=== PATIENT | female | born 1965 | race Two or more races ===

== ENCOUNTER 2024-10-02 20:56 | Emergency (ER) | payer MEDICARE, OTHER ==
[~2024-10-02] VITALS: Ht 170.2 cm; Wt 93.3 kg
[2024-10-02] MEDS ORDERED: NYST150P2 TOP (22:47)
--- NOTE | 2024-10-02 22:47 | ED.PDOC ---
History of Present Illness(SKN HPI Comments 59 year old female presents to ER with complaints of rash x 2 days. Patient is present with environment coordinator, reporting that she has been experiencing an red itchy rash to antecubital fossa of both arms, under bilateral breasts and under belly folds x 2 days. Denies use of medications for current symptoms and denies any pain. Denies fever, skin drainage, body aches or any further symptoms/complaints Chief Complaint: Rash Time Seen by MD: 21:04 Primary Care Provider: UNKNOWN History of Present Illness: Nurses Notes, Medications, Allergies Allergies: Coded Allergies: Codeine (Verified Allergy, Unknown, 10/02/24) Penicillins (Verified Allergy, Unknown, 10/02/24) Home Meds Active Scripts Nystatin (Nystatin) 1 Pow Pow, 1 POW TOP BID PRN, #1 POW 1 Refill Prov:MIKAELA MILLER 10/02/24 Information Source: Patient Mode of Arrival: Ambulatory Past Medical History PAST MEDICAL HISTORY: High Lipids, HTN Past Medical History (Other): Parkinsons Surgical History: Cholecystectomy, Tubal Ligation BOILER HELPER History: No Pertinent BOILER HELPER History Family History Family History: Unknown Social History Smoker: Non-Smoker Alcohol: Denies ETOH Use Drugs: Denies Drug Use Lives In: Home Constitutional: denies: chills, diaphoresis, fatigue, fever, malaise, sweats, weakness, others EENTM: denies: blurred vision, double vision, ear bleeding, ear discharge, ear drainage, ear pain, ear ringing, eye pain, eye redness, hearing loss, mouth pain, mouth swelling, nasal discharge, nose bleeding, nose congestion, nose pain, photophobia, tearing, throat pain, throat swelling, voice changes, others Respiratory: denies: cough, hemoptysis, orthopnea, SOB at rest, shortness of breath, SOB with excertion, stridor, wheezing, others Cardiovascular: denies: chest pain, dizzy spells, diaphoresis, Dyspnea on exertion, edema, irregular heart beat, left arm pain, lightheadedness, palpitations, PND, syncope, others Gastrointestinal: denies: abdomen distended, abdominal pain, blood streaked bowels, constipated, diarrhea, dysphagia, difficulty swallowing, hematemesis, melena, nausea, poor appetite, poor fluid intake, rectal bleeding, rectal pain, vomiting, others Genitourinary: denies: abnormal vagina bleeding, burning, dyspareunia, dysuria, flank pain, frequency, hematuria, incontinence, pain, , vagina discharge, urgency, others Neurological: denies: dizziness, fainting, headache, left sided numbness, left sided weakness, numbness, paresthesia, pre-existing deficit, right sided numbness, right sided weakness, seizure, speech problems, tingling, tremors, weakness, others Musculoskeletal: denies: back pain, gout, joint pain, joint swelling, muscle pain, muscle stiffness, neck pain, others Integumetry: reports: others (As stated in HPI) Allergic/Immunocompromised: reports: others (As stated in HPI) Hematologic/Lymphatic: denies: anemia, blood clots, easy bleeding, easy bruising, swollen glands, others Endocrine: denies: excessive hunger, excessive sweating, excessive thirst, excessive urination, flushing, intolerance to cold, intolerance to heat, unexplained weight gain, unexplained weight loss, others Psychiatric: denies: anxiety, bipolar disorder, depression, hopeless, panic disorder, schizophrenia, sleepless, suicidal, others Physical Exam General Appearance: No Apparent Distress HEENT: PERRL/EOMI Neck: Full Range of Motion, Non-Tender, Normal Respiratory: Chest Non-Tender, Lungs Clear, No Accessory Muscle Use, No Respir atory Distress, Normal Breath Sounds Cardiovascular: No Murmur, No Gallop, Regular Rate/Rhythm Breast Exam: Deferred Gastrointestinal: Non Tender, No Pulsatile Mass, Soft Genitalia: Deferred Pelvic: Deferred Rectal: Deferred Extremities: Normal capillary refill, Normal range of motion Neurologic: Alert, No Motor Deficits, Normal Affect, Normal Mood, No Sensory Deficits Cerebellar Function: Normal Reflexes: Normal Skin: Dry, Warm, Other (Mild erythema noted to region of antecubital fossa of both arms and under belly folds that patient is noted to be itching. No open wounds/skin drainage noted) Peripheral Pulses: 2+ Radial (R), 2+ Radial (L), 2+ Brachial (R), 2+ Brachial (L) Lymphatic: No Adenopathy Was a procedure done? Was a procedure done?: No Sedation Sedation?: No Differential Diagnosis (INTG) Differential Diagnosis: Abrasion Differential Diagnosis: Abscess, Contact Dermatitis Differential Diagnosis: Cellulitis X-Ray, Labs, Meds, VS Vital Signs Date Time Temp Pulse Resp B/P (MAP) Pulse Ox O2 Delivery O2 Flow Rate FiO2 10/02/24 21:17 98.2 90 20 (60) 93 98.2 Advised to f/u with PCP in 1-2 days Patient and patients caregiver verbalized understanding and agreeable with current plan of care Advised to return to ER immediately if symptoms worsen Time of 1ST Reevaluation: 22:20 Reevaluation 1ST: N/A Patient Education/Counseling: Diagnosis, Treatment, Prognosis, Need For Follow Up Family Education/Counseling: Diagnosis, Treatment, Prognosis, Need For Follow Up SEPSIS Sepsis Screen Date sepsis recognized/suspect: Oct 02, 2024 Time Sepsis recognized/suspect: 2109 Recent Procedure: No On Antibiotic Therapy: No Respiratory Rate >20: No Heart Rate >90: No Temp<36 C (96.8 F) or >38.3 C: No SBP <90 or MAP <65 mmHG: No New Acute Mental Status Change: No Is the patient on CPAP, BIPAP,: No Vital Signs Date Time Temp Pulse Resp B/P (MAP) Pulse Ox O2 Delivery O2 Flow Rate FiO2 10/02/24 21:17 98.2 90 20 (60) 93 98.2 Departure 1 Departure Time of Disposition: 22:42 Impression: Primary Impression: Candidal dermatitis Disposition: HOME / SELF CARE / HOMELESS Condition: Stable e-Prescriptions Nystatin (Nystatin) 1 Pow Pow 1 POW TOP BID PRN, #1 POW 1 Refill Prov: MIKAELA MILLER 10/02/24 Discharged With: Mattress Filler Critical Care Note Critical Care Time?: No Stability Stability form required: No Heart Score Heart Score: Heart Score Response (Comments) Value History N/A 0 EKG N/A 0 Age N/A 0 Risk Factors N/A 0 Troponin N/A 0 Total 0 MIKAELA MILLER Oct 02, 2024 22:47
[2024-10-02 23:05] VITALS: BP 112/90; PULSE 88; RESP 18; TEMP 98.4; O2SAT 94
== END 2024-10-02 23:25 | disposition home or self-care (01) ==
LOC: ER 20:56
DX: B37.2 Candidiasis of skin and nail (principal); I10 Essential (primary) hypertension; E78.5 Hyperlipidemia, unspecified; G20.A1 Parkinson's disease without dyskinesia, without mention of fluctuations; Z98.51 Tubal ligation status; Z90.49 Acquired absence of other specified parts of digestive tract; Z88.5 Allergy status to narcotic agent; Z88.0 Allergy status to penicillin; Z79.899 Other long term (current) drug therapy

== ENCOUNTER 2024-11-09 11:42 | Inpatient (IN) | payer MEDICARE, OTHER ==
[~2024-11-09] VITALS: Ht 167.6 cm; Wt 96.6 kg
[~2024-11-09 11:42] MED LIST: NYST150P2 TOP
[2024-11-09 11:54] VITALS: PULSE 82; RESP 13; O2SAT 96
--- NOTE | 2024-11-09 12:11 | ED.PDOC ---
History of Present Illness HPI Comments This is a 59-year-old female with past medical history of hypertension, Parkinson disease, depression presented to the ED via EMS for an evaluation of status post mechanical fall. According to EMS the patient had a mechanical fall 30 minutes ago parking lot of [id number] while she was attending the [facility]. The patient is A&O x3 and is complaining of pain in the left knee and pain and burning sensation in the urine. She denies headache, blurred vision, lightheadedness, shoulder , chest or hip pain. She fall on her right side and there are bruises in the check, right wrist, and knee. Chief Complaint: Fall Injury Time Seen by MD: 11:45 Primary Care Provider: UNKNOWN Allergies: Coded Allergies: Codeine (Verified Allergy, Unknown, 10/02/24) Penicillins (Verified Allergy, Unknown, 10/02/24) Home Meds Active Scripts Nystatin (Nystatin) 1 Pow Pow, 1 POW TOP BID PRN, #1 POW 1 Refill Prov:MIKAELA MILLER 10/02/24 Information Source: Patient, Emergency Med Personnel Mode of Arrival: EMS Severity: Moderate Timing: Hours Duration: Since onset Prehospital treatment: None Past Medical History PAST MEDICAL HISTORY: Alzheimer, Depression, High Lipids, HTN Surgical History: Cholecystectomy, Tubal Ligation PLANT 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 Pertinent PLANT TECHNICIAN History Family History Family History: Unknown Social History Smoker: Non-Smoker Alcohol: Denies ETOH Use Drugs: Denies Drug Use Lives In: Home Constitutional: denies: chills, diaphoresis, fatigue, fever, malaise, sweats, weakness, others EENTM: denies: blurred vision, double vision, ear bleeding, ear discharge, ear drainage, ear pain, ear ringing, eye pain, eye redness, hearing loss, mouth pain, mouth swelling, nasal discharge, nose bleeding, nose congestion, nose pain, photophobia, tearing, throat pain, throat swelling, voice changes, others Respiratory: denies: cough, hemoptysis, orthopnea, SOB at rest, shortness of breath, SOB with excertion, stridor, wheezing, others Cardiovascular: denies: chest pain, dizzy spells, diaphoresis, Dyspnea on exertion, edema, irregular heart beat, left arm pain, lightheadedness, palpitations, PND, syncope, others Gastrointestinal: denies: abdomen distended, abdominal pain, blood streaked bowels, constipated, diarrhea, dysphagia, difficulty swallowing, hematemesis, melena, nausea, poor appetite, poor fluid intake, rectal bleeding, rectal pain, vomiting, others Genitourinary: denies: abnormal vagina bleeding, burning, dyspareunia, dysuria, flank pain, frequency, hematuria, incontinence, pain, , vagina discharg e, urgency, others Neurological: denies: dizziness, fainting, headache, left sided numbness, left sided weakness, numbness, paresthesia, pre-existing deficit, right sided numbness, right sided weakness, seizure, speech problems, tingling, tremors, weakness, others Musculoskeletal: reports: back pain, others (Pain in the left knee); denies: gout, joint pain, joint swelling, muscle pain, muscle stiffness, neck pain Integumetry: reports: bruises; denies: change in color, change in hair/nails, dryness, laceration, lesions, lumps, rash, wounds, others Allergic/Immunocompromised: denies: Difficulty Healing, Frequent Infections, Hives, Itching, others Hematologic/Lymphatic: denies: anemia, blood clots, easy bleeding, easy bruising, swollen glands, others Endocrine: denies: excessive hunger, excessive sweating, excessive thirst, excessive urination, flushing, intolerance to cold, intolerance to heat, unexplained weight gain, unexplained weight loss, others Psychiatric: reports: depression; denies: anxiety, bipolar disorder, hopeless, panic disorder, schizophrenia, sleepless, suicidal, others Physical Exam General Appearance: Normal HEENT: Normal ENT Inspection, Pharynx Normal, TMs Normal Neck: Full Range of Motion, Non-Tender, Normal, Normal Inspection Respiratory: Chest Non-Tender, Lungs Clear, No Accessory Muscle Use, No Respiratory Distress, Normal Breath Sounds Cardiovascular: No Edema, No JVD, No Murmur, No Gallop, Normal Peripheral Pulses, Regular Rate/Rhythm Breast Exam: Deferred Gastrointestinal: No Organomegaly, Non Tender, No Pulsatile Mass, Normal Bowel Sounds, Soft Genitalia: Deferred Pelvic: Deferred Rectal: Deferred Extremities: No calf tenderness, Normal capillary refill, Normal range of motion, No pedal edema Neurologic: internal communications intern II-XII nml as Tested, No Motor Deficits, No Sensory Deficits, Other (Use walker) Cerebellar Function: Tremor Reflexes: Normal Skin: Bruises Peripheral Pulses: 2+ carotid (R), 2+ carotid (L), 2+ femoral (R), 2+ femoral (L), 2+ dorsalis pedis (R), 2+ dorsalis pedis (L), 2+ Radial (R), 2+ Radial (L), 2+ Brachial (R), 2+ Brachial (L) Lymphatic: No Adenopathy Was a procedure done? Was a procedure done?: No Differential Dx Considerations may include: Status post mechanical fall, fractures, bruises, musculoskeletal pain, tremor, parkinsonism, generalized weakness X-Ray, Labs, Meds, VS Vital Signs Date Time Temp Pulse Resp B/P (MAP) Pulse Ox O2 Delivery O2 Flow Rate FiO2 11/09/24 11:54 82 13 96 Nasal Cannula* 4 36 11/09/24 11:54 98.9 82 13 110/85 (93) 93 98.9 11/09/24 11:44 98.9 88 20 111/74 95 98.9 Lab Test 11/09/24 13:10 Range/Units White Blood Count 6.3 4.4-10.8 10^3/uL Red Blood Count 4.28 4.0-5.20 10^6/uL Hemoglobin 14.1 12.2-16.2 g/dL Hematocrit 41.2 36.0-46.0 % Mean Corpuscular Volume 96.3 80.0-100.0 fL Mean Corpuscular Hemoglobin 32.9 H 28.0-32.0 pg Mean Corpuscular Hemoglobin Concent 34.1 32.0-36.0 g/dL Red Cell Distribution Width 15.7 H 11.8-14.3 % Platelet Count 220 140-450 10^3/uL Mean Platelet Volume 9.2 6.9-10.8 fL Neutrophils (%) (Auto) 61.2 37.0-80.0 % Lymphocytes (%) (Auto) 25.4 10.0-50.0 % Monocytes (%) (Auto) 11.1 0.0-12.0 % Eosinophils (%) (Auto) 1.9 0.0-7.0 % Basophils (%) (Auto) 0.4 0.0-2.0 % Neutrophils # (Auto) 3.8 1.6-8.6 10 ^3/uL Lymphocytes # (Auto) 1.6 0.4-5.4 10 ^3/uL Monocytes # (Auto) 0.7 0-1.3 10 ^3/uL Eosinophils # (Auto) 0.1 0-0.8 10 ^3/uL Basophils # (Auto) 0 0-0.2 10 ^3/uL Nucleated Red Blood Cells 0.0 % Sodium Level 140 136-145 mmol/L Potassium Level 3.9 3.5-5.1 mmol/L Chloride Level 103 98-107 mmol/L Carbon Dioxide Level 33 H 20-31 mmol/L Anion Gap 4 L 5-15 Blood Urea Nitrogen 13 9-23 mg/dL Creatinine 0.83 0.550-1.02 mg/dL Glomerular Filtration Rate Calc 80 >90 mL/min BUN/Creatinine Ratio 15.7 10.0-20.0 Serum Glucose 93 74-106 mg/dL Calcium Level 8.3 L 8.7-10.4 mg/dL Current Medications Medications (Trade) Dose Ordered Sig/Radha Route Start Time Stop Time Status Last Admin Ketorolac Tromethamine (Toradol Injection) 30 mg ONCE ONCE IV 11/09/24 14:45 11/09/24 15:33 DC 11/09/24 17:13 X-Ray, Labs, Meds, VS Comment EXAM: CT CERVICAL WITHOUT CONTRAST INDICATION: Status post mechanical fall EXAM DATE: 11/09/2024 12:50 PM COMPARISON: None TECHNIQUE: Multiple axial CT images of the cervical spine were obtained using bone algorithm. Axial and coronal reformatting was done. Bone and soft tissue windows were reviewed. Radiation Dose Information: CT Dose: CTDI volume is 20.95 mGy. Dose-length product is 462.51 mGy*cm FINDINGS: The cervical alignment is intact. No acute cervical spine fracture is identified. The vertebral body heights are intact. No suspicious osseous lesions are identified. No significant degenerative changes are identified. There is no prevertebral soft tissue swelling. IMPRESSION: No evidence of acute cervical spine fracture or traumatic malalignment. EXAM: CT HEAD WITHOUT CONTRAST INDICATION: History of fall TECHNIQUE: CT of the head without intravenous contrast. Radiation Dose Information: CT Dose: CTDI volume is 54.01 mGy. Dose-length product is 1077.86 mGy*cm The dose indicators for CT are the volume Computed Tomography (CT) Dose Index (CTDIvol) and the Dose Length Product (DLP), and are measured in units of mGy and mGy-cm, respectively. These indicators are not patient dose, but values generated from the CT scanner acquisition factors. The report includes radiation exposure data for exposures received during this examination. COMPARISON: None FINDINGS: There is no evidence of acute intracranial hemorrhage, extra-axial collection, mass effect, midline shift, herniation or hydrocephalus. The ventricles, sulci and cisterns are age appropriate. The dolan-white differentiation is intact. Patchy periventricular and subcortical white matter hypoattenuation is nonspecific but may be related to small vessel ischemic disease. The visualized paranasal sinuses and mastoid air cells are clear. The surrounding soft tissues and osseous structures are unremarkable. IMPRESSION: No acute intracranial abnormality. CLINICAL INDICATION: Status post mechanical fall TECHNIQUE: 2 radiographic views of the right knee were obtained. Comparison: None FINDINGS/IMPRESSION: There is no evidence of acute fracture or dislocation. The visualized joint space is well maintained. The alignment is anatomical. There is no radiopaque foreign body. EXAM: XY CHEST XRAY 1 VIEW Indication: Status post mechanical fall Technique: Single frontal view of the chest was obtained Comparison: None FINDINGS: Lines and Tubes: None Lungs: Low lung volumes with diffuse interstitial opacities. Pleura: No effusion. No pneumothorax. Cardiomediastinal contours: Unremarkable Bones: No acute osseous abnormality. IMPRESSION: Low lung volumes with diffuse interstitial opacities. Images Reviewed?: Images reviewed and evaluated by me Time of 1ST Reevaluation: 15:00 Reevaluation 1ST: Improved Patient Education/Counseling: Diagnosis, Treatment Family Education/Counseling: Other Comments This is a 60 yr old female brought into ED via EMS after a mechanical fall in the parking lot of [facility] during community outreach event Initial physical exam demonstrated mild erythema in the right cheek and right knee, no sign of swelling or tenderness is present in the extremities Trauma workup CT head, CT cervical spine, chest x-ray, plain x-ray KUB and knee x-ray were negative. The patient is ambulatory in walker and A&OX3 in her baseline. The patient is complaining of chest pain and knee pain after fall and not able to ambulate with a walker The patient will need inpatient admission for further evaluation and management of mechanical fall and generalized weakness SEPSIS Sepsis Screen Physician Orders Head Without Contrast (11/09/24 11:59) Chest Xray 1 View (11/09/24 11:59) Kub Abdomen Single View (11/09/24 11:59) Urinalysis (11/09/24 11:59) Cervical Without Contrast (11/09/24 11:59) R Knee 2v Xray (11/09/24 11:59) Vital Signs Date Time Temp Pulse Resp B/P (MAP) Pulse Ox O2 Delivery O2 Flow Rate FiO2 11/09/24 11:54 82 13 96 Nasal Cannula* 4 36 11/09/24 11:54 98.9 82 13 110/85 (93) 93 98.9 11/09/24 11:44 98.9 88 20 111/74 95 98.9 Laboratory Tests Test 11/09/24 13:10 White Blood Count 6.3 10^3/uL (4.4-10.8) Medications Medications Dose Ordered Sig/Radha Route Start Time Stop Time Status Last Admin Dose Admin Ketorolac Tromethamine 30 mg ONCE ONCE IV 11/09/24 14:45 11/09/24 15:33 DC 11/09/24 17:13 Departure 1 Departure Time of Disposition: 15:44 Impression: Primary Impression: Status post fall Additional Impression: Superficial bruising of lower leg Disposition: ADMITTED INPATIENT Admit to: Med Surg Condition: Guarded Critical Care Note Critical Care Time?: No Stability Stability form required: KALE Phan RESIDENT Nov 09, 2024 12:11
--- NOTE | 2024-11-09 13:31 | DVH ---
CLINICAL INDICATION: Status post mechanical fall TECHNIQUE: 2 radiographic views of the right knee were obtained. Comparison: None FINDINGS/IMPRESSION: There is no evidence of acute fracture or dislocation. The visualized joint space is well maintained. The alignment is anatomical. There is no radiopaque foreign body.
--- NOTE | 2024-11-09 13:33 | DVH ---
Date: 11/09/2024 01:00 PM Examination: XY KUB ABDOMEN SINGLE VIEW History: Status post mechanical fall Comparison: None TECHNIQUE: Frontal views of the abdomen was obtained. FINDINGS: Moderate stool burden. The lung bases are collimated from field of view. No acute osseous abnormality identified. IMPRESSION: Nonobstructive bowel gas pattern.
--- NOTE | 2024-11-09 13:34 | DVH ---
EXAM: XY CHEST XRAY 1 VIEW Indication: Status post mechanical fall Technique: Single frontal view of the chest was obtained Comparison: None FINDINGS: Lines and Tubes: None Lungs: Low lung volumes with diffuse interstitial opacities. Pleura: No effusion. No pneumothorax. Cardiomediastinal contours: Unremarkable Bones: No acute osseous abnormality. IMPRESSION: Low lung volumes with diffuse interstitial opacities.
[2024-11-09 13:35] LABS: Hematocrit 41.2 % (36.0-46.0); Hemoglobin 14.1 g/dL (12.2-16.2); Mean Corpuscular Hemoglobin 32.9 pg (28.0-32.0); Mean Corpuscular Volume 96.3 fL (80.0-100.0); Nucleated Red Blood Cells % 0.0 %
--- NOTE | 2024-11-09 13:39 | DVH ---
EXAM: CT CERVICAL WITHOUT CONTRAST INDICATION: Status post mechanical fall EXAM DATE: 11/09/2024 12:50 PM COMPARISON: None TECHNIQUE: Multiple axial CT images of the cervical spine were obtained using bone algorithm. Axial a nd coronal reformatting was done. Bone and soft tissue windows were reviewed. Radiation Dose Information: CT Dose: CTDI volume is 20.95 mGy. Dose-length product is 462.51 mGy*cm FINDINGS: The cervical alignment is intact. No acute cervical spine fracture is identified. The vertebral body heights are intact. No suspicious osseous lesions are identified. No significant degenerative changes are identified. There is no prevertebral soft tissue swelling. IMPRESSION: No evidence of acute cervical spine fracture or traumatic malalignment. All CT scans at this medical facility are performed using dose modulation techniques as appropriate t o a performed exam including the following: Automated exposure control was utilized; adjustment of th e MA and/or KV according to patient size; and use of iterative reconstruction technique.
--- NOTE | 2024-11-09 13:39 | DVH ---
EXAM: CT HEAD WITHOUT CONTRAST INDICATION: History of fall TECHNIQUE: CT of the head without intravenous contrast. Radiation Dose Information: CT Dose: CTDI volume is 54.01 mGy. Dose-length product is 1077.86 mGy*cm The dose indicators for CT are the volume Computed Tomography (CT) Dose Index (CTDIvol) and the Dose Length Product (DLP), and are measured in units of mGy and mGy-cm, respectively. These indicators are not patient dose, but values generated from the CT scanner acquisition factors. The report includes radiation exposure data for exposures received during this examination. COMPARISON: None FINDINGS: There is no evidence of acute intracranial hemorrhage, extra-axial collection, mass effect, midline s hift, herniation or hydrocephalus. The ventricles, sulci and cisterns are age appropriate. The dolan-white differentiation is intact. Patchy periventricular and subcortical white matter hypoattenuation is nonspecific but may be related to small vessel ischemic disease. The visualized paranasal sinuses and mastoid air cells are clear. The surrounding soft tissues and osseous structures are unremarkable. IMPRESSION: No acute intracranial abnormality.
[2024-11-09 13:42] LABS: Chloride 103 mmol/L (98-107); Potassium 3.9 mmol/L (3.5-5.1); Sodium 140 mmol/L (136-145)
[2024-11-09 13:43] LABS: Anion Gap 4 (5-15)
[2024-11-09 13:47] LABS: Calcium 8.3 mg/dL (8.7-10.4); Carbon Dioxide 33 mmol/L (20-31)
[2024-11-09 13:48] LABS: BUN/Creatinine Ratio 15.7 (10.0-20.0); Blood Urea Nitrogen 13 mg/dL (9-23); Glucose 93 mg/dL (74-106)
[2024-11-09] MEDS: KETOROLAC TROMETH 30 MG/ML 1ML VIAL IV ONE (17:13)
[2024-11-09] MEDS ORDERED: ONDANSETRON HCL 4 MG/2 ML VIAL IV PRN (21:00)
[2024-11-09] MEDS ORDERED: DOCUSATE SOD 100 MG CAP PO PRN (21:00)
--- NOTE | 2024-11-09 21:56 | DVHHP2 ---
History of Present Illness Reason for Visit: Status post fall History of Present Illness The patient is a 59-year-old female with past medical history of Parkinson's disease, Alzheimer, depression, hyperlipidemia, and hypertension who presented to [facility] ED for evaluation of mechanical fall at home. As reported by EMS, patient had a mechanical fall at parking lot of [employer] while she was attending the community out reach event. Patient complaining of pain in the left knee, burning sensation in the urine. Patient was seen and evaluated in the ED, laboratory data shows WBC 6.3, platelets 220, sodium 140, potassium 3.9, BUN 13, creatinine 0.83, glucose 93, calcium 8.3. Cervical spine CT showed no evidence of acute cervical spine fracture or traumatic malalignment; chest x-ray revealing low lung volumes with diffuse interstitial opacities. Please see medication orders section in the computer. On my assessment, patient denied ches t pain, no headache, no dizziness, no diaphoresis, no shortness of breath, no abdominal pain, no nausea, no vomiting, no fever, no chills. Patient was admitted for further evaluation and medical management. Past Medical History Parkinson's disease, Alzheimer, Depression, High Lipids, HTN Past Surgical History Cholecystectomy, Tubal Ligation Family History Reviewed, noncontributory to the management of this case. Past Social History The patient lives at home, denies smoking, alcohol or illicit drugs abuse. Review of Systems Constitutional: Yes: Weakness; No: Fever, Chills, Sweats, Malaise, Other Eyes: No: Pain, Vision change, Conjunctivae inflammation, Eyelid inflammation, Other, Redness ENT: No: Ear pain, Ear discharge, Nose pain, Nose discharge, Nose congestion, Mouth pain, Mouth swelling, Throat pain, Throat swelling, Other Respiratory: No: Cough, Dry, Shortness of breath, SOB with excertion, Wheezing, Hemoptysis, Pleuritic Pain, Sputum, Wheezing, Other Cardiovascular: No: Chest Pain, Palpitations, Orthopnea, Paroxysmal Noc. Dyspnea, Edema, Lt Headedness, Other Gastrointestinal: No: Nausea, Vomiting, Abdominal Pain, Diarrhea, Constipation, Melena, Hematochezia, Other Genitourinary: No Dysuria, No Frequency, No Incontinence, No Hematuria, No Retention, No Other Musculoskeletal: back pain (Pain in the knee); No: other, neck pain, shoulder pain, arm pain, hand pain, leg pain, foot pain Skin: No: Rash, Lesions, Jaundice, Bruising, Other Neurological: No: Weakness, Numbness, Incoordination, Change in speech, Confusion, Seizures, Other Allergies: Coded Allergies: Codeine (Verified Allergy, Unknown, 10/02/24) Penicillins (Verified Allergy, Unknown, 10/02/24) Medications Current Medications Medications Dose Ordered Sig/Radha Route Start Time Stop Time Status Last Admin Dose Admin Sodium Chloride 10 ml Q8HR IV 11/09/24 22:00 Ondansetron HCl 4 mg Q4HP PRN IV 11/09/24 21:00 Docusate Sodium 100 mg BIDPRN PRN PO 11/09/24 21:00 Acetaminophen 650 mg Q6HP PRN PO 11/09/24 21:00 Morphine Sulfate 2 mg Q4HPRN PRN IV 11/09/24 21:00 UNV Exam Vital Signs Vital Signs Date Time Temp Pulse Resp B/P (MAP) Pulse Ox O2 Delivery O2 Flow Rate FiO2 11/09/24 18:45 98.6 70 23 119/77 (91) 91 98.6 11/09/24 11:54 Nasal Cannula* 4 36 General Appearance: Alert, Oriented X3, Cooperative, No acute distress HEENT: Atraumatic, PERRLA, EOMI, Mucous membr. moist/pink Respiratory: Normal air movement Cardiovascular: Regular rate, Normal S1, Normal S2, No murmurs Abdominal: Normal bowel sounds, Soft, No tenderness, No hepatospenomegaly, No masses Extremities: No clubbing, No cyanosis, No edema, Normal pulses, Other (Knee tenderness) Skin: No rashes, No breakdown, No significant lesion Neuro: Normal speech, Normal tone, Sensation intact, Cranial nerves 3-12 NL, Reflexes 2+, Other (Generalized weakness) Psych/Mental Status: Mental status NL, Mood NL Labs/Xrays Labs Test 11/09/24 13:10 Range/Units White Blood Count 6.3 4.4-10.8 10^3/uL Red Blood Count 4.28 4.0-5.20 10^6/uL Hemoglobin 14.1 12.2-16.2 g/dL Hematocrit 41.2 36.0-46.0 % Mean Corpuscular Volume 96.3 80.0-100.0 fL Mean Corpuscular Hemoglobin 32.9 H 28.0-32.0 pg Mean Corpuscular Hemoglobin Concent 34.1 32.0-36.0 g/dL Red Cell Distribution Width 15.7 H 11.8-14.3 % Platelet Count 220 140-450 10^3/uL Mean Platelet Volume 9.2 6.9-10.8 fL Neutrophils (%) (Auto) 61.2 37.0-80.0 % Lymphocytes (%) (Auto) 25.4 10.0-50.0 % Monocytes (%) (Auto) 11.1 0.0-12.0 % Eosinophils (%) (Auto) 1.9 0.0-7.0 % Basophils (%) (Auto) 0.4 0.0-2.0 % Neutrophils # (Auto) 3.8 1.6-8.6 10 ^3/uL Lymphocytes # (Auto) 1.6 0.4-5.4 10 ^3/uL Monocytes # (Auto) 0.7 0-1.3 10 ^3/uL Eosinophils # (Auto) 0.1 0-0.8 10 ^3/uL Basophils # (Auto) 0 0-0.2 10 ^3/uL Nucleated Red Blood Cells 0.0 % Sodium Level 140 136-145 mmol/L Potassium Level 3.9 3.5-5.1 mmol/L Chloride Level 103 98-107 mmol/L Carbon Dioxide Level 33 H 20-31 mmol/L Anion Gap 4 L 5-15 Blood Urea Nitrogen 13 9-23 mg/dL Creatinine 0.83 0.550-1.02 mg/dL Glomerular Filtration Rate Calc 80 >90 mL/min BUN/Creatinine Ratio 15.7 10.0-20.0 Serum Glucose 93 74-106 mg/dL Calcium Level 8.3 L 8.7-10.4 mg/dL PATIENT: GRISEL RODRÍGUEZ ACCT: [id number] UNIT: [id number] : 1965 LOC: ER ROOM / BED: / AGE / SEX: 59 / F ADM STATUS: REG ER SERVICE 1159 ORDERING PHYSICIAN: KALE SIMPSON RESIDENT PROCEDURE(s): KUB - KUB ABDOMEN SINGLE VIEW REASON: Status post mechanical fall ORDER NUMBER(s): [id number], ACCESSION NUMBER(s): [id number] Date: 11/09/2024 01:00 PM Examination: XY KUB ABDOMEN SINGLE VIEW History: Status post mechanical fall Comparison: None TECHNIQUE: Frontal views of the abdomen was obtained. FINDINGS: Moderate stool burden. The lung bases are collimated from field of view. No acute osseous abnormality identified. IMPRESSION: Nonobstructive bowel gas pattern. ORDERING PHYSICIAN: KALE SIMPSON PROCEDURE(s): CS2 - CERVICAL WITHOUT CONTRAST REASON: Status post mechanical fall ORDER NUMBER(s): [id number], ACCESSION NUMBER(s): [id number] EXAM: CT CERVICAL WITHOUT CONTRAST INDICATION: Status post mechanical fall EXAM DATE: 11/09/2024 12:50 PM COMPARISON: None TECHNIQUE: Multiple axial CT images of the cervical spine were obtained using bone algorithm. Axial and coronal reformatting was done. Bone and soft tissue windows were reviewed. Radiation Dose Information: CT Dose: CTDI volume is 20.95 mGy. Dose-length product is 462.51 mGy*cm FINDINGS: The cervical alignment is intact. No acute cervical spine fracture is identified. The vertebral body heights are intact. No suspicious osseous lesions are identified. No significant degenerative changes are identified. There is no prevertebral soft tissue swelling. IMPRESSION: No evidence of acute cervical spine fracture or traumatic malalignment. ORDERING PHYSICIAN: KALE SIMPSON PROCEDURE(s): CXR1 - CHEST XRAY 1 VIEW REASON: Status post mechanical fall ORDER NUMBER(s): [id number], ACCESSION NUMBER(s): [id number] EXAM: XY CHEST XRAY 1 VIEW Indication: Status post mechanical fall Technique: Single frontal view of the chest was obtained Comparison: None FINDINGS: Lines and Tubes: None Lungs: Low lung volumes with diffuse interstitial opacities. Pleura: No effusion. No pneumothorax. Cardiomediastinal contours: Unremarkable Bones: No acute osseous abnormality. IMPRESSION: Low lung volumes with diffuse interstitial opacities. ORDERING PHYSICIAN: KALE SIMPSON PROCEDURE(s): HWOCT - HEAD WITHOUT CONTRAST REASON: History of fall ORDER NUMBER(s): [id number], ACCESSION NUMBER(s): [id number] EXAM: CT HEAD WITHOUT CONTRAST INDICATION: History of fall TECHNIQUE: CT of the head without intravenous contrast. Radiation Dose Information: CT Dose: CTDI volume is 54.01 mGy. Dose-length product is 1077.86 mGy*cm The dose indicators for CT are the volume Computed Tomography (CT) Dose Index ( CTDIvol) and the Dose Length Product (DLP), and are measured in units of mGy and mGy-cm, respectively. These indicators are not patient dose, but values generated from the CT scanner acquisition factors. The report includes radiation exposure data for exposures received during this examination. COMPARISON: None FINDINGS: There is no evidence of acute intracranial hemorrhage, extra-axial collection, mass effect, midline shift, herniation or hydrocephalus. The ventricles, sulci and cisterns are age appropriate. The dolan-white differentiation is intact. Patchy periventricular and subcortical white matter hypoattenuation is nonsp ecific but may be related to small vessel ischemic disease. The visualized paranasal sinuses and mastoid air cells are clear. The surrounding soft tissues and osseous structures are unremarkable. IMPRESSION: No acute intracranial abnormality. ORDERING PHYSICIAN: KALE SIMPSON RESIDENT PROCEDURE(s): RKNE2 - R KNEE 2V XRAY REASON: Status post mechanical fall ORDER NUMBER(s): [id number], ACCESSION NUMBER(s): [id number] CLINICAL INDICATION: Status post mechanical fall TECHNIQUE: 2 radiographic views of the right knee were obtained. Comparison: None FINDINGS/IMPRESSION: There is no evidence of acute fracture or dislocation. The visualized joint space is well maintained. The alignment is anatomical. There is no radiopaque foreign body. SEPSIS Sepsis Screen Date sepsis recognized/suspect: Nov 09, 2024 Time Sepsis recognized/suspect: 1154 Recent Procedure: No On Antibiotic Therapy: No Respiratory Rate >20: No Heart Rate >90: No Temp<36 C (96.8 F) or >38.3 C: No SBP <90 or MAP <65 mmHG: No New Acute Mental Status Change: No Is the patient on CPAP, BIPAP,: No Physician Orders Allergies (11/09/24 20:59) Code Status (11/09/24 20:59) Sodium Chloride Lock (Saline Lock Ns) (11/09/24 22:00) Oxygen Per Hour (11/09/24 20:59) Ondansetron Hcl (Zofran) (11/09/24 21:00) Docusate Sodium Capsule (Colace Capsule) (11/09/24 21:00) Fall Risk Precautions In Place QSHIFT (11/09/24 20:59) Complete Blood Count (11/10/24 04:00) Comprehensive Metabolic Panel (11/10/24 04:00) Cardiac Diet-2gna,Lofat,Lochol (11/10/24 Breakfast) Condition: Serious (11/09/24 20:59) Acetaminophen Tablet (Tylenol Tablet) (11/09/24 21:00) Bedrest With Bathroom Privileg (11/09/24 20:59) Morphine Sulfate Injection (11/09/24 21:00) Sequential Compression Device (11/09/24 ) Admit (11/09/24 21:54) Nitroglycerin Sublingual (Ntrostat Subli (11/09/24 22:00) Morphine Sulfate Injection (11/09/24 22:00) Notify Md Of Changes From Base (11/09/24 21:54) Emergency Dysrhythmia Protocol (11/09/24 21:54) Oxygen By Nasal Cannula (11/09/24 21:54) Vital Signs Date Time Temp Pulse Resp B/P (MAP) Pulse Ox O2 Delivery O2 Flow Rate FiO2 11/09/24 18:45 98.6 70 23 119/77 (91) 91 98.6 11/09/24 15:52 97.0 78 20 122/75 (91) 92 97.0 Laboratory Tests Test 11/09/24 13:10 White Blood Count 6.3 10^3/uL (4.4-10.8) Medications Medications Dose Ordered Sig/Radha Route Start Time Stop Time Status Last Admin Dose Admin Ketorolac Tromethamine 30 mg ONCE ONCE IV 11/09/24 14:45 11/09/24 15:33 DC 11/09/24 17:13 30 MG Assessment/Plan Assessment/Plan Status post fall Hypocalcemia Superficial bruising of lower leg Generalized weakness Plan 1. Admit to telemetry unit 2. Breathing treatment 3. Pain control management 4. Management of fluids and electrolytes 5. Consultation for hospitalist 6. Diagnostic tests cervical spine CT 7. DVT prophylaxis on SCDs 8. Repeat labs CBC, CMP in a.m. 9. Continue with current medical management 10. Treatment plan discussed with patient and RN. Patient verbalized understanding. Plan discussed with: Patient, Other (RN) My Orders Orders - RODOLFO FLORES DNP Procedure Category Date Status Time Allergies DEL 11/09/24 In Process 20:59 Code Status CODE 11/09/24 Transmitted 20:59 Sodium Chloride Lock PHA 11/09/24 In Process (Saline Lock Ns) 22:00 Oxygen Per Hour RT 11/09/24 Transmitted 20:59 Ondansetron Hcl PHA 11/09/24 In Process (Zofran) 21:00 Docusate Sodium PHA 11/09/24 In Process Capsule (Colace 21:00 Fall Risk Precautions DEL 11/09/[address] 20:59 Complete Blood Count LAB 11/10/24 Verified 04:00 Comprehensive LAB 11/10/24 Verified Metabolic Panel 04:00 Cardiac DIET 11/10/24 Transmitted Diet-2gna,Lofat,Lochol Breakfast Condition: Serious DEL 11/09/24 In Process 20:59 Acetaminophen Tablet PHA 11/09/24 In Process (Tylenol Tablet) 21:00 Bedrest With Bathroom DEL 11/09/24 In Process Privileg 20:59 Morphine Sulfate PHA 11/09/24 Logged Injection 21:00 Sequential DEL 11/09/24 In Process Compression Device Admit ADMIT 11/09/24 Verified 21:54 Nitroglycerin PHA 11/09/24 Verified Sublingual (Ntrostat 22:00 Morphine Sulfate PHA 11/09/24 Verified Injection 22:00 Notify Md Of Changes DEL 11/09/24 Verified From Base 21:54 Emergency Dysrhythmia DEL 11/09/24 Verified Protocol 21:54 Oxygen By Nasal RT 11/09/24 Verified Cannula 21:54 Problem List: (1) Status post fall (2) Hypocalcemia (3) Superficial bruising of lower leg (4) Generalized weakness Date of Service: Nov 09, 2024 Billing Provider: RODOLFO FLORES DNP Common Visit Codes: [id number] INP/OBS CARE (HIGH) RODOLFO FLORES DNP Nov 09, 2024 21:56
[2024-11-09] MEDS ORDERED: NITROGLYCERIN 0.4 MG SL TAB SL PRN (22:00)
[2024-11-09] MEDS ORDERED: MORPHINE SULFATE INJ 2 MG/ml SYRG IV PRN (22:00)
[2024-11-09] MEDS: SODIUM CHLOR 0.9% PF (SALINE LOCK) 10ML VIAL/SYR IV SCH (22:08)
[2024-11-10] VITALS (11 sets, daily range): BP systolic 98–119; BP diastolic 37–78; PULSE 65–80; RESP 17–20; TEMP 97.6–98.4; O2SAT 90–96
[2024-11-10] MEDS ORDERED: PRIM250T29 PO (05:32)
[2024-11-10] MEDS ORDERED: HYDR50TA69 PO (05:32)
[2024-11-10] MEDS ORDERED: NYST150P2 XX (05:32)
[2024-11-10] MEDS ORDERED: CYAN100056 PO (05:32)
[2024-11-10] MEDS ORDERED: QUET400T PO (05:32)
[2024-11-10] MEDS ORDERED: PROP1TAB51 PO (05:32)
[2024-11-10] MEDS ORDERED: CYAN1TAB14 PO (05:32)
[2024-11-10] MEDS ORDERED: HAL5T PO (05:32)
[2024-11-10] MEDS ORDERED: SERT-160 PO (05:32)
[2024-11-10] MEDS ORDERED: FAMO20TA10 GT (05:32)
[2024-11-10] MEDS ORDERED: TRAZ-227 PO (05:32)
[2024-11-10] MEDS ORDERED: CARB10TA21 PO (05:32)
[2024-11-10] MEDS ORDERED: ALBUAER3 IN (05:32)
[2024-11-10] MEDS ORDERED: SUCR1TAB31 OR (05:32)
[2024-11-10] MEDS ORDERED: ATOR40TA52 PO (05:32)
[2024-11-10] MEDS ORDERED: IBUP-1454 PO (05:32)
[2024-11-10] MEDS ORDERED: HYDR-4924 PO (05:32)
[2024-11-10] MEDS ORDERED: ALBUTEROL SULF 2.5 MG/0.5ML(0.5%) NEB SOLN NEB PRN (06:00)
[2024-11-10] MEDS: FAMOTIDINE (10MG/ML) 2ML VL IV SCH (11:37)
[2024-11-10] MEDS: SERTRALINE HCL 50 MG TAB PO SCH (11:37)
[2024-11-10] MEDS: CARBIDOPA W LEVODOPA 10/100mg TABLET PO SCH (11:38)
[2024-11-10] MEDS: CALCIUM GLUC 1,000mg/50ml-NS 50 ML IV ONE (11:38)
[2024-11-10] MEDS: ACETAMINOPHEN 325 MG TAB PO PRN (11:39)
[2024-11-10 11:42] LABS: Hematocrit 44.2 % (36.0-46.0); Hemoglobin 15.0 g/dL (12.2-16.2); Mean Corpuscular Hemoglobin 33.3 pg (28.0-32.0); Mean Corpuscular Volume 98.0 fL (80.0-100.0); Nucleated Red Blood Cells % 0.0 %
[2024-11-10 12:05] LABS: Alanine Aminotransferase 23 U/L (7-40); Albumin 4.4 g/dL (3.2-4.8); Anion Gap 9 (5-15); BUN/Creatinine Ratio 14.5 (10.0-20.0); Bilirubin, Total 0.4 mg/dL (0.2-1.0); Blood Urea Nitrogen 12 mg/dL (9-23); Calcium 8.8 mg/dL (8.7-10.4); Carbon Dioxide 29 mmol/L (20-31); Chloride 102 mmol/L (98-107); Glucose 86 mg/dL (74-106); Potassium 3.9 mmol/L (3.5-5.1); Sodium 140 mmol/L (136-145); Total Protein 7.2 g/dL (5.7-8.2)
[2024-11-10 12:07] LABS: Alkaline Phosphatase 125 U/L (46-116)
--- NOTE | 2024-11-10 15:16 | DVHPN2 ---
Subjective Patient reporting have right left rib pain. Reviewed: Care Plan, H&P, Labs, Medications Changes from previous H/P or p: No Changes General: Per HPI Eyes: No Pain, No Vision change, No Conjunctivae inflammation, No Eyelid inflammation, No Other, No Redness ENT: No Ear pain, No Ear discharge, No Nose pain, No Nose discharge, No Nose congestion, No Mouth pain, No Mouth swelling, No Throat pain, No Throat swelling, No Other Cardiovascular: No Chest Pain, No Palpitations, No Orthopnea, No Paroxysmal Noc. Dyspnea, No Edema, No Lt Headedness, No Other Respiratory: No Cough, No Dry, No Shortness of breath, No SOB with excertion, No Wheezing, No Hemoptysis, No Pleuritic Pain, No Sputum, No Other Gastrointestinal: No Nausea, No Vomiting, No Abdominal Pain, No Diarrhea, No Constipation, No Melena, No Hematochezia, No Other Genitourinary: No Dysuria, No Frequency, No Incontinence, No Hematuria, No Retention, No Other Musculoskeletal: No other, No neck pain, No shoulder pain, No arm pain; back pain (Pain in the knee); No hand pain, No leg pain, No foot pain Skin: No Rash, No Lesions, No Jaundice, No Bruising, No Other Objective Vitals Vital Signs Date Time Temp Pulse Resp B/P (MAP) Pulse Ox O2 Delivery O2 Flow Rate FiO2 11/10/24 12:47 98.4 74 18 119/57 (77) 95 98.4 11/10/24 05:01 Nasal Cannula* 2 28 General Appearance: Alert, Oriented X3, Cooperative, No acute distress, mild distress HEENT: Atraumatic, PERRLA Lungs: Clear to auscultation, Normal air movement Cardiovascular: Normal S1, Normal S2 Abdomen: Normal bowel sounds, Soft, No tenderness Musculoskeletal: Normal sensory function, Normal motor function Extremities: No clubbing, No cyanosis, No edema, Normal pulses, No tenderness/swelling Neuro: Normal speech Skin: Dry, Intact Psych/Mental Status: Mental status NL, Mood NL Medications Current Medications Medications Dose Ordered Sig/Radha Route Start Time Stop Time Status Last Admin Dose Admin Sodium Chloride 10 ml Q8HR IV 11/09/24 22:00 11/10/24 11:38 10 ML Ondansetron HCl 4 mg Q4HP PRN IV 11/09/24 21:00 Docusate Sodium 100 mg BIDPRN PRN PO 11/09/24 21:00 Acetaminophen 650 mg Q6HP PRN PO 11/09/24 21:00 11/10/24 11:39 650 MG Morphine Sulfate 2 mg Q4HPRN PRN IV 11/09/24 21:00 UNV Nitroglycerin 0.4 mg Q5MINP PRN SL 11/09/24 22:00 Morphine Sulfate 2 mg Q30M PRN IV 11/09/24 22:00 UNV Carbidopa/Levodopa 1 tab TID PO 11/10/24 06:00 11/10/24 11:38 1 TAB Sertraline HCl 100 mg DAILY PO 11/10/24 10:00 11/10/24 11:37 100 MG Quetiapine Fumarate 300 mg HS PO 11/10/24 22:00 Famotidine 20 mg DAILY IV 11/10/24 10:00 11/10/24 11:37 20 MG Atorvastatin Calcium 40 mg HS PO 11/10/24 22:00 Albuterol 2.5 mg Q4HPRN PRN NEB 11/10/24 06:00 Laboratory Results Laboratory Tests 11/10/24 11:17 Chemistry Test 11/10/24 11:17 Albumin 4.4 g/dL (3.2-4.8) Calcium Level 8.8 mg/dL (8.7-10.4) Total Protein 7.2 g/dL (5.7-8.2) LFT Test 11/10/24 11:17 Alanine Aminotransferase (ALT) 23 U/L (7-40) Alkaline Phosphatase 125 U/L (46-116) H Aspartate Amino Transferase (AST) 25 U/L (13-40) Total Bilirubin 0.4 mg/dL (0.2-1.0) Microbiology Microbiology Date/Time Source Procedure Growth Status 11/10/24 05:43 Nose MRSA Screen - Final Complete Labs and/or images reviewed: Labs reviewed by me, Image(s) reviewed by me Assessment/Plan Assessment/Plan Impression: -mechanical fall -pleuritic chest pain -primary hypertension -Alzheimer's disease -Parkinson's disease -obesity -constipation Plan: -one time dose of IV Toradol, start Celebrex 100 mg p.o. b.i.d. -continue home medications -stool softeners -PT consultation -reassess for discharge in a.m. Total time spent with patient discussing and formulating plan of care: 35 minutes. This medical document was created using an electronic medical record system with [employer] dictation system. Although this document has been carefully reviewed, there may still be some phonetic and typographical errors. These areas are purely typographical due to imperfections of the software programs, and do not reflect any compromise in the patient's medical care. Plan discussed with: Patient, Son (RN) My Orders Orders - MARJORIE RODRIGUEZ NP Procedure Category Date Status Time Pt Request For Service PT 11/10/24 Logged 15:05 Date of Service: Nov 10, 2024 Billing Provider: MARJORIE RODRIGUEZ NP Common Visit Codes: [id number] INP/OBS CARE(HIGH) MARJORIE RODRIGUEZ NP Nov 10, 2024 15:16
[2024-11-10] MEDS: KETOROLAC TROMETH 30 MG/ML 1ML VIAL IV ONE (18:35)
[2024-11-10] MEDS: CELECOXIB 100 MG CAP PO SCH (22:24)
[2024-11-10] MEDS: ATORVASTATIN 20 MG TAB PO SCH (22:28)
[2024-11-10] MEDS: DOCUSATE SOD 100 MG CAP PO SCH (22:28)
[2024-11-11 01:00] VITALS: BP 116/50; PULSE 70; RESP 20; TEMP 98.5; O2SAT 92
[2024-11-11 05:00] VITALS: BP 117/62; PULSE 64; RESP 18; TEMP 98.1; O2SAT 97
[2024-11-11 08:00] VITALS: PULSE 78; O2SAT 91
[2024-11-11 08:11] VITALS: O2SAT 95
[2024-11-11 08:39] VITALS: BP 99/65; PULSE 67; RESP 17; TEMP 97.3; O2SAT 93
[2024-11-11] MEDS ORDERED: DICL75TA3 PO (10:43)
--- NOTE | 2024-11-11 10:47 | DVHDS2 ---
Discharge Summary Date of Admission Nov 09, 2024 at 21:54 Date of Discharge: Nov 11, 2024 Admitting Diagnosis Mechanical fall Labs/Diagnostic Data: Laboratory Results Test 11/10/24 11:17 White Blood Count 5.5 10^3/uL (4.4-10.8) Red Blood Count 4.51 10^6/uL (4.0-5.20) Hemoglobin 15.0 g/dL (12.2-16.2) Hematocrit 44.2 % (36.0-46.0) Mean Corpuscular Volume 98.0 fL (80.0-100.0) Mean Corpuscular Hemoglobin 33.3 pg (28.0-32.0) Mean Corpuscular Hemoglobin Concent 34.0 g/dL (32.0-36.0) Red Cell Distribution Width 15.6 % (11.8-14.3) Platelet Count 222 10^3/uL (140-450) Mean Platelet Volume 9.3 fL (6.9-10.8) Neutrophils (%) (Auto) 55.8 % (37.0-80.0) Lymphocytes (%) (Auto) 29.9 % (10.0-50.0) Monocytes (%) (Auto) 12.1 % (0.0-12.0) Eosinophils (%) (Auto) 1.3 % (0.0-7.0) Basophils (%) (Auto) 0.9 % (0.0-2.0) Neutrophils # (Auto) 3.1 10 ^3/uL (1.6-8.6) Lymphocytes # (Auto) 1.6 10 ^3/uL (0.4-5.4) Monocytes # (Auto) 0.7 10 ^3/uL (0-1.3) Eosinophils # (Auto) 0.1 10 ^3/uL (0-0.8) Basophils # (Auto) 0 10 ^3/uL (0-0.2) Nucleated Red Blood Cells 0.0 % Sodium Level 140 mmol/L (136-145) Potassium Level 3.9 mmol/L (3.5-5.1) Chloride Level 102 mmol/L (98-107) Carbon Dioxide Level 29 mmol/L (20-31) Anion Gap 9 (5-15) Blood Urea Nitrogen 12 mg/dL (9-23) Creatinine 0.83 mg/dL (0.550-1.02) Glomerular Filtration Rate Calc 80 mL/min (>90) BUN/Creatinine Ratio 14.5 (10.0-20.0) Serum Glucose 86 mg/dL (74-106) Calcium Level 8.8 mg/dL (8.7-10.4) Total Bilirubin 0.4 mg/dL (0.2-1.0) Aspartate Amino Transferase (AST) 25 U/L (13-40) Alanine Aminotransferase (ALT) 23 U/L (7-40) Alkaline Phosphatase 125 U/L (46-116) Total Protein 7.2 g/dL (5.7-8.2) Albumin 4.4 g/dL (3.2-4.8) Other Laboratory Tests 11/10/24 11:17 Brief Hx & Hospital Course: History of Present Illness The patient is a 59-year-old female with past medical history of Parkinson's disease, Alzheimer, depression, hyperlipidemia, and hypertension who presented to [facility] ED for evaluation of mechanical fall at home. As reported by EMS, patient had a mechanical fall at parking lot of [employer] while she was attending the community out reach event. Patient complaining of pain in the left knee, burning sensation in the urine. Patient was seen and evaluated in the ED, laboratory data shows WBC 6.3, platelets 220, sodium 140, potassium 3.9, BUN 13, creatinine 0.83, glucose 93, calcium 8.3. Cervical spine CT showed no evidence of acute cervical spine fracture or traumatic malalignment; chest x-ray revealing low lung volumes with diffuse interstitial opacities. Please see medication orders section in the computer. On my assessment, patient denied chest pain, no headache, no dizziness, no diaphoresis, no shortness of breath, no abdominal pain, no nausea, no vomiting, no fever, no chills. Patient was admitted for further evaluation and medical management. Course of hospitalization: Patient had extensive radiographic diagnostic testing which was negative for any acute pathology/fracture/intracranial hemorrhage. Patient does report having some chest pain with difficulty breathing. Patient was weaned off oxygen while in the hospital. Patient has been ambulating with walker. Pain was alleviated with Goodwin 2 inhibitors. Patient will be discharged home on diclofenac 75 mg p.o. twice a day for 10 days. She is instructed to follow up with the discharge Clinic in one week. All questions answered. Physical examination General: Alert and Oriented x3. No acute distress. Well-nourished. Eyes: EOMI. Anicteric. HENT: Moist mucous membranes. Lungs: Clear to auscultation bilaterally. No accessory muscle use. Cardiovascular: Regular rate and rhythm. No murmur. No JVD. Abdomen: Soft, non-tender and non-distended. No palpable masses. Extremities: No edema. Non-tender. Skin: No rashes or lesions. Warm. Neurologic: No focal neurological deficits. CN II-XII grossly intact, but not individually tested. Psychiatric: Cooperative. Appropriate mood and affect. Total time spent with patient discussing and formulating plan of care: 35 minutes. This medical document was created using an electronic medical record system with [employer] dictation system. Although this document has been carefully reviewed, there may still be some phonetic and typographical errors. These areas are purely typographical due to imperfections of the software programs, and do not reflect any compromise in the patient's medical care. Condition at Discharge: Fair Final Diagnosis/Problems List Mechanical fall with lichen chest trauma Secondary diagnosis: -pleuritic chest pain -primary hypertension -Alzheimer's disease -Parkinson's disease -obesity -constipation -history of nicotine dependence -acute hypoxic respiratory failure Discharge Disposition: Home Discharge Instruct/Medications Diet: Cardiac 2g Na,low cholest Activity: No Restrictions, As Tolerated Follow Up/Referral: Follow up with the PCP in 1-2 weeks Medications: Continue all previous home medications Diclofenac 75 mg p.o. b.i.d. times 10 days Scheduled Atorvastatin Calcium (Atorvastatin Calcium), 1 TAB PO DAILY, (Reported) Diclofenac Sodium (Diclofenac Sodium Dr), 1 TAB PO BID Haloperidol (Haldol), 1 TAB PO QPM, (Reported) Hydroxyzine Hcl (Hydroxyzine Hcl), 1 TAB PO TID, (Reported) Ibuprofen (Ibuprofen), 1 TAB PO TID, (Reported) Quetiapine Fumerate (Seroquel), 1 TAB PO QPM, (Reported) Sertraline Hcl (Sertraline Hcl), 1 TAB PO DAILY, (Reported) Scheduled PRN Nystatin (Nystatin), 1 POW TOP BID PRN Miscellaneous Medications Albuterol Sulfate (Ventolin Mdi), 90 MCG IN, (Reported) Carbidopa-Levodopa (Carbidopa/Levodopa Odt 10-100 mg), 1 TAB PO, (Reported) Cyanocobalamin (B-12), 1,000 MCG PO, (Reported) Cyanocobalamin (B12), 1,000 MCG PO, (Reported) Famotidine (Pepcid Tablet), 20 MG GT, (Reported) Nystatin (Nystatin), 1 POW XX, (Reported) Primidone (Mysoline), 250 MG PO, (Reported) Propranolol HCl (Propranolol Hydrochloride), 10 MG PO, (Reported) Sucralfate (Carafate), 1 GM OR, (Reported) Trazodone Hcl (Trazodone Hcl), 50 MG PO, (Reported) Discontinued Medications Hydroxyzine HCl (Hydroxyzine Hydrochloride), 25 MG PO, (Reported) 36 Discharge Statement: "Patient was advised to return to the ER or call 911 if any headaches, dizziness, shortness of breath, chest pain, abdominal pain, bleeding, fevers, or worsening of medical condition. Patient was counseled about treatment plan, medications, possible side effects, patientverbalized understanding. All questions were answered to the best of my ability. This discharge took greater then 30 minutes in planning, reviewing documentation, counseling the patient, and discussing with other team members." ASSESSMENT ASSESSMENT Assessment Mechanical fall with lichen chest trauma Date of Service: Nov 11, 2024 Billing Provider: MARJORIE RODRIGUEZ NP Common Visit Codes: 69563-DTK/OBS DISCH DAY >30min MARJORIE RODRIGUEZ NP Nov 11, 2024 10:47
[2024-11-11] MEDS: MORPHINE SULFATE INJ 2 MG/ml SYRG IV PRN (10:59)
[2024-11-11 12:57] VITALS: BP 141/67; PULSE 68; RESP 19; TEMP 97.3; O2SAT 95
== END 2024-11-11 13:40 | disposition home or self-care (01) | DRG 913 ==
LOC: EDBD 11:42 → ER 11:42 → OVERFLOW 21:54 → WEST WING 11-10 02:40
PROVIDERS: ADMIT Nurse Practitioner Family; ATTEND Nurse Practitioner Family
DX: S29.8XXA Other specified injuries of thorax, initial encounter (principal); J96.01 Acute respiratory failure with hypoxia; S80.10XA Contusion of unspecified lower leg, initial encounter; E83.51 Hypocalcemia; G20.A1 Parkinson's disease without dyskinesia, without mention of fluctuations; G30.9 Alzheimer's disease, unspecified; E66.9 Obesity, unspecified; R07.81 Pleurodynia; Z68.37 Body mass index [BMI] 37.0-37.9, adult; F32.A Depression, unspecified; E78.5 Hyperlipidemia, unspecified; S29.9XXA Unspecified injury of thorax, initial encounter; W18.30XA Fall on same level, unspecified, initial encounter; F02.80 Dementia in other diseases classified elsewhere, unspecified severity, without behavioral disturbance, psychotic disturbance, mood disturbance, and anxiety; I10 Essential (primary) hypertension; Z88.0 Allergy status to penicillin; Z88.5 Allergy status to narcotic agent; Y93.89 Activity, other specified; Y92.481 Parking lot as the place of occurrence of the external cause; Y92.009 Unspecified place in unspecified non-institutional (private) residence as the place of occurrence of the external cause
CPT/HCPCS: 36415; 70450; 71045; 72125; 73560; 74018; 80048; 80053; 85025; 87081; 96374; 97163; G0378; J1885; J3490

== ENCOUNTER 2025-01-08 11:29 | Emergency (ER) | payer MEDICARE, OTHER ==
[~2025-01-08] VITALS: Ht 167.6 cm; Wt 90.0 kg
[~2025-01-08 11:29] MED LIST changes: +ALBUAER3 IN; +ATOR40TA52 PO; +CARB10TA21 PO; +CYAN100056 PO; +CYAN1TAB14 PO; +DICL75TA3 PO; +FAMO20TA10 GT; +HAL5T PO; +HYDR50TA69 PO; +IBUP-1454 PO; +NYST150P2 XX; +PRIM250T29 PO; +PROP1TAB51 PO; +QUET400T PO; +SERT-160 PO; +SUCR1TAB31 OR; +TRAZ-227 PO
--- NOTE | 2025-01-08 13:10 | ED.PDOC ---
Back pain HPI HPI Comments 59-year-old female presents to the ER interval chair and with the manager of corporate communications in the chief complaint of lower extremity pain. Patient is from [facility] and the mds manager called Cecilia is with her right now. Patient reports that she was inside of a van, and when she was stepping out of the van she tripped and fell, causing her to have knee and BV toe pain on the right lower extremity. Patient notes on using a walker to ambulate as well as having home O2 via [place]. Denies any other symptoms at this time. Chief Complaint: Lower Extremity Time Seen by MD: 13:00 Primary Care Provider: UNKNOWN Reviewed Notes: Nurses Notes, Medications, Allergies Allergies: Coded Allergies: Codeine (Verified Allergy, Unknown, 10/02/24) Penicillins (Verified Allergy, Unknown, 10/02/24) Home Meds Active Scripts Diclofenac Sodium (Diclofenac Sodium Dr) 75 Mg Tab, 1 TAB PO BID for 10 Days, #20 TAB 1 Refill Prov:MARJORIE RODRIGUEZ RN CLINICAL DOCUMENTATION 11/11/24 Nystatin (Nystatin) 1 Pow Pow, 1 POW TOP BID PRN, #1 POW 1 Refill Prov:MIKAELA MILLER 10/02/24 Reported Medications Hydroxyzine Hcl (Hydroxyzine Hcl) 50 Mg Tab, 1 TAB PO TID, #90 TAB 2 Refills 11/10/24 Haloperidol (Haldol) 5 Mg Tb, 1 TAB PO QPM, #30 TAB 1 Refill 11/10/24 Famotidine (PEPCID TABLET) 20 Mg Tb, 20 MG GT, TAB 11/10/24 Carbidopa-Levodopa (Carbidopa/Levodopa Odt 10-100 mg) 1 Tab Tab, 1 TAB PO, TAB 11/10/24 Atorvastatin Calcium (ATORVASTATIN CALCIUM) 40 Mg Tab, 1 TAB PO DAILY, #30 TAB 5 Refills 11/10/24 Cyanocobalamin (B12) 1,000 Mcg Tab, 1000 MCG PO, TAB 11/10/24 Cyanocobalamin (B-12) 1,000 Mcg Cap, 1000 MCG PO, CAP 11/10/24 Trazodone Hcl (Trazodone Hcl) 50 Mg Tab, 50 MG PO, TAB 11/10/24 Sertraline Hcl (Sertraline Hcl) 100 Mg Tab, 1 TAB PO DAILY, #90 TAB 1 Refill 11/10/24 Quetiapine Fumerate (Seroquel) 400 Mg Tab, 1 TAB PO QPM, #30 TAB 1 Refill 11/10/24 Primidone (Mysoline) 250 Mg Tab, 250 MG PO, TAB 11/10/24 Nystatin (Nystatin) 1 Pow Pow, 1 POW XX, POW 11/10/24 Ibuprofen (Ibuprofen) 600 Mg Tab, 1 TAB PO TID, #90 TAB 11/10/24 Albuterol Sulfate (VENTOLIN MDI) 90 Mcg Ih, 90 MCG IN, INH 11/10/24 Sucralfate (CARAFATE) 1 Gm Tab, 1 GM OR, TAB 11/10/24 Propranolol HCl (Propranolol Hydrochloride) 10 Mg Tab, 10 MG PO, TAB 11/10/24 Information Source: Patient, [employer] Mode of Arrival: EMS Timing: Minutes Duration: Since onset, Minutes Severity: Moderate Prehospital treatment: None Quality: Aching Onset: Fall History of: None Associated signs and symptoms: None Past Medical History PAST MEDICAL HISTORY: Alzheimer, Depression, High Lipids, HTN Surgical History: Cholecystectomy, Tubal Ligation BANQUET PREP COOK History: No Pertinent BANQUET PREP COOK History Family History Family History: Reviewed,noncontributory to illness, Unknown Social History Smoker: Non-Smoker Alcohol: Denies ETOH Use Drugs: Denies Drug Use Lives In: Home Constitutional: denies: chills, diaphoresis, fatigue, fever, malaise, sweats, weakness, others EENTM: denies: blurred vision, double vision, ear bleeding, ear discharge, ear drainage, ear pain, ear ringing, eye pain, eye redness, hearing loss, mouth pain, mouth swelling, nasal discharge, nose bleeding, nose congestion, nose pain, photophobia, tearing, throat pain, throat swelling, voice changes, others Respiratory: denies: cough, hemoptysis, orthopnea, SOB at rest, shortness of breath, SOB with excertion, stridor, wheezing, others Cardiovascular: denies: chest pain, dizzy spells, diaphoresis, Dyspnea on exertion, edema, irregular heart beat, left arm pain, lightheadedness, palpitations, PND, syncope, others Gastrointestinal: denies: abdomen distended, abdominal pain, blood streaked bowels, constipated, diarrhea, dysphagia, difficulty swallowing, hematemesis, melena, nausea, poor appetite, poor fluid intake, rectal bleeding, rectal pain, vomiting, others Genitourinary: denies: abnormal vagina bleeding, burning, dyspareunia, dysuria, flank pain, frequency, hematuria, incontinence, pain, , vagina discharge, urgency, others Neurological: denies: dizziness, fainting, headache, left sided numbness, left sided weakness, numbness, paresthesia, pre-existing deficit, right sided numbness, right sided weakness, seizure, speech problems, tingling, tremors, weakness, others Musculoskeletal: reports: others (Right knee and baby toe pain); denies: back pain, gout, joint pain, joint swelling, muscle pain, muscle stiffness, neck pain Integumetry: denies: bruises, change in color, change in hair/nails, dryness, l aceration, lesions, lumps, rash, wounds, others Allergic/Immunocompromised: denies: Difficulty Healing, Frequent Infections, Hives, Itching, others Hematologic/Lymphatic: denies: anemia, blood clots, easy bleeding, easy bruising, swollen glands, others Endocrine: denies: excessive hunger, excessive sweating, excessive thirst, excessive urination, flushing, intolerance to cold, intolerance to heat, unexplained weight gain, unexplained weight loss, others Psychiatric: denies: anxiety, bipolar disorder, depression, hopeless, panic disorder, schizophrenia, sleepless, suicidal, others All Other Systems: Reviewed and Negative Physical Exam General Appearance: No Apparent Distress, Normal HEENT: Normal ENT Inspection, Pharynx Normal, TMs Normal Neck: Full Range of Motion, Non-Tender, Normal, Normal Inspection Respiratory: Chest Non-Tender, Lungs Clear, No Accessory Muscle Use, No Respiratory Distress, Normal Breath Sounds Cardiovascular: No Edema, No JVD, No Murmur, No Gallop, Normal Peripheral Pulses, Regular Rate/Rhythm Breast Exam: Deferred Gastrointestinal: No Organomegaly, Non Tender, No Pulsatile Mass, Normal Bowel Sounds, Soft Genitalia: Deferred Pelvic: Deferred Rectal: Deferred Extremities: No calf tenderness, Normal capillary refill, Normal inspection, Normal range of motion, Non-tender, No pedal edema Musculoskeletal : Location: Right Extremity Location: Knee, Little Toe Apperance: Tenderness: Moderate Neurologic: Alert, supervisor [employer] II-XII nml as Tested, No Motor Deficits, Normal Affect, Normal Mood, No Sensory Deficits Cerebellar Function: Normal Reflexes: Normal Skin: Dry, Normal Color, Warm Lymphatic: No Adenopathy Was a procedure done? Was a procedure done?: No Back Pain Differential Dx Differential Diagnosis: Musculoskeletal Pain X-Ray, Labs, Meds, VS Vital Signs Date Time Temp Pulse Resp B/P (MAP) Pulse Ox O2 Delivery O2 Flow Rate FiO2 01/08/25 11:45 98.0 73 14 163/100 93 98.0 Lab Test 01/08/25 14:30 01/08/25 13:11 Range/Units Urine Color Pending Urine Clarity Pending Urine pH Pending Urine Specific [place] Pending Urine Protein Pending Urine Ketones Pending Urine Blood Pending Urine Nitrite Pending Urine Bilirubin Pending Urine Urobilinogen Pending Urine Leukocyte Esterase Pending Urine RBC Pending Urine Microscopic WBC Pending Urine Squamous Epithelial Cells Pending Urine Bacteria Pending Urine Glucose Pending White Blood Count 4.5 4.4-10.8 10^3/uL Red Blood Count 4.48 4.0-5.20 10^6/uL Hemoglobin 14.6 12.2-16.2 g/dL Hematocrit 43.2 36.0-46.0 % Mean Corpuscular Volume 96.4 80.0-100.0 fL Mean Corpuscular Hemoglobin 32.6 H 28.0-32.0 pg Mean Corpuscular Hemoglobin Concent 33.8 32.0-36.0 g/dL Red Cell Distribution Width 15.1 H 11.8-14.3 % Platelet Count 243 140-450 10^3/uL Mean Platelet Volume 8.9 6.9-10.8 fL Neutrophils (%) (Auto) 43.4 37.0-80.0 % Lymphocytes (%) (Auto) 38.0 10.0-50.0 % Monocytes (%) (Auto) 15.8 H 0.0-12.0 % Eosinophils (%) (Auto) 2.1 0.0-7.0 % Basophils (%) (Auto) 0.7 0.0-2.0 % Neutrophils # (Auto) 1.9 1.6-8.6 10 ^3/uL Lymphocytes # (Auto) 1.7 0.4-5.4 10 ^3/uL Monocytes # (Auto) 0.7 0-1.3 10 ^3/uL Eosinophils # (Auto) 0.1 0-0.8 10 ^3/uL Basophils # (Auto) 0 0-0.2 10 ^3/uL Nucleated Red Blood Cells 0.1 % Sodium Level 140 136-145 mmol/L Potassium Level 4.0 3.5-5.1 mmol/L Chloride Level 99 98-107 mmol/L Carbon Dioxide Level 32 H 20-31 mmol/L Anion Gap 9 5-15 Blood Urea Nitrogen 13 9-23 mg/dL Creatinine 0.90 0.550-1.02 mg/dL Glomerular Filtration Rate Calc 73 >90 mL/min BUN/Creatinine Ratio 14.4 10.0-20.0 Serum Glucose 91 74-106 mg/dL Calcium Level 8.6 L 8.7-10.4 mg/dL X-Ray, Labs, Meds, VS Comment 59-year-old female presents to the ER interval chair and with the manager of corporate communications in the chief complaint of lower extremity pain. Patient arrives alert and oriented, ABC's intact, afebrile, vital signs stable, saturating well in room air Peripheral IV insertion+ labs were ordered. CBC was ordered to exclude anemia, blood loss, or infection. BMP was ordered to exclude electrolyte abnormalities, renal failure, dehydration, hyperglycemia Urinalysis was ordered to rule out UTI or hematuria Diagnostic imaging ordered by me and results interpreted by radiology : Right foot x-ray Additional MDM Review of External, Non-ED records: External records reviewed. Discussion with independent historian (EMS, family) history obtained from the patient/parents (if applicable) at bedside Chronic conditions affecting care: None Social determinants of health affecting care: None Consideration of admission (observation or admission): I considered escalation of care to admission for this patient, however given the reassuring workup, the patient is safe for outpatient management. Discussion with the Radiology: No Tests considered but not performed: Prescription medication considered but not given: 12 lead EKG interpretation: Time of 1ST Reevaluation: 13:30 Reevaluation 1ST: Unchanged Patient Education/Counseling: Diagnosis, Treatment, Prognosis Family Education/Counseling: Diagnosis, Treatment, Prognosis SEPSIS Sepsis Screen Date sepsis recognized/suspect: Jan 08, 2025 Time Sepsis recognized/suspect: 1131 Recent Procedure: No On Antibiotic Therapy: No Respiratory Rate >20: No Heart Rate >90: No Temp<36 C (96.8 F) or >38.3 C: No SBP <90 or MAP <65 mmHG: No New Acute Mental Status Change: No Is the patient on CPAP, BIPAP,: No Physician Orders R Foot 3 View Xray (01/08/25 12:31) Urinalysis (01/08/25 12:31) Vital Signs Date Time Temp Pulse Resp B/P (MAP) Pulse Ox O2 Delivery O2 Flow Rate FiO2 01/08/25 11:45 98.0 73 14 163/100 93 98.0 Laboratory Tests Test 01/08/25 13:11 White Blood Count 4.5 10^3/uL (4.4-10.8) Departure 1 Departure Time of Disposition: 17:11 Impression: Primary Impression: Sprain of toe, fifth, right Qualified Codes: S93.504A - Unspecified sprain of right lesser toe(s), initial encounter Disposition: HOME / SELF CARE / HOMELESS Condition: Stable Discharged With: Self Critical Care Note Critical Care Time?: No Stability Stability form required: No Heart Score Heart Score: Heart Score Response (Comments) Value History N/A 0 EKG N/A 0 Age N/A 0 Risk Factors N/A 0 Troponin N/A 0 Total 0 I personally scribed for DANNA RAMIREZ NP ([email or web address]) on 01/08/25 at 13:10. Electronically submitted by Mahesh Chang ([email or web address]). DANNA RAMIREZ NP Jan 08, 2025 13:10
--- NOTE | 2025-01-08 13:30 | DVH ---
CLINICAL INDICATION: foot pain to 5th phalanges TECHNIQUE: 3 radiographic views of the left foot and ankle were obtained. Comparison: None FINDINGS/IMPRESSION: Fusion of the tibiotalar joint space is noted with internal fixation screws There are no fractures or dislocations. If infection is of clinical concern consider MRI.
[2025-01-08 13:51] LABS: Chloride 99 mmol/L (98-107); Potassium 4.0 mmol/L (3.5-5.1); Sodium 140 mmol/L (136-145)
[2025-01-08 13:52] LABS: Anion Gap 9 (5-15)
[2025-01-08 13:57] LABS: BUN/Creatinine Ratio 14.4 (10.0-20.0); Blood Urea Nitrogen 13 mg/dL (9-23); Calcium 8.6 mg/dL (8.7-10.4); Carbon Dioxide 32 mmol/L (20-31); Glucose 91 mg/dL (74-106)
[2025-01-08 14:05] LABS: Hematocrit 43.2 % (36.0-46.0); Hemoglobin 14.6 g/dL (12.2-16.2); Mean Corpuscular Hemoglobin 32.6 pg (28.0-32.0); Mean Corpuscular Volume 96.4 fL (80.0-100.0); Nucleated Red Blood Cells % 0.1 %
[2025-01-08 17:23] VITALS: BP 122/98; PULSE 77; RESP 16; TEMP 98; O2SAT 96
== END 2025-01-08 17:25 | disposition home or self-care (01) ==
LOC: ER 11:29 → EDBD 11:29 → ER 17:25
DX: S93.504A Unspecified sprain of right lesser toe(s), initial encounter (principal); F32.A Depression, unspecified; I10 Essential (primary) hypertension; Z88.0 Allergy status to penicillin; Z79.899 Other long term (current) drug therapy; Z88.5 Allergy status to narcotic agent; Z90.49 Acquired absence of other specified parts of digestive tract; Z98.51 Tubal ligation status; X58.XXXA Exposure to other specified factors, initial encounter; Y93.89 Activity, other specified; Y92.89 Other specified places as the place of occurrence of the external cause; Y99.8 Other external cause status
CPT/HCPCS: 36415; 73630; 80048; 85025